=== PATIENT | male | born 1975 | race Caucasian/White ===

== ENCOUNTER 2020-12-11 08:01 | Emergency (ER) | payer MEDICAID ==
[~2020-12-11] VITALS: Ht 180.3 cm; Wt 115.0 kg
[2020-12-11 08:41] LABS: BASOPHILS % (AUTO) 0.2 % (0-1); EOSINOPHILS # (AUTO) 2.4 X10'3 (0-0.9); EOSINOPHILS % (AUTO) 14.9 % (0-6); HEMATOCRIT 45.4 % (42.0-52.0); HEMOGLOBIN 15.2 g/dl (14.0-17.9); LYMPHOCYTES # (AUTO) 1.7 X10'3 (1.1-4.8); MEAN CORPUSCULAR HEMOGLOBIN 31.4 PG (27.0-31.0); MEAN CORPUSCULAR HGB CONC 33.5 g/dL (33.0-36.5); MEAN CORPUSCULAR VOLUME 93.9 FL (78-98); MONOCYTES # (AUTO) 1.3 X10'3 (0-0.9); NEUTROPHILS # (AUTO) 10.4 X10'3 (1.8-7.7); NEUTROPHILS % (AUTO) 65.9 % (42-75); PLATELET COUNT 554 X10'3 (140-440); RED BLOOD COUNT 4.83 X10'6 (4.70-6.10); RED CELL DISTRIBUTION WIDTH 13.8 % (11.5-14.5); WHITE BLOOD COUNT 15.8 X10'3 (4.5-11.0)
[2020-12-11 08:58] LABS: ALANINE AMINOTRANSFERASE 53 U/L (12-78); ALBUMIN 2.6 G/DL (3.4-5.0); ALBUMIN/GLOBULIN RATIO 0.5 (1.1-1.5); ALKALINE PHOSPHATASE 59 IU/L (46-116); ANION GAP 10 (8-16); ASPARTATE AMINO TRANSFERASE 26 U/L (10-37); BILIRUBIN,TOTAL 0.3 MG/DL (0.1-1.0); BLOOD UREA NITROGEN 10 MG/DL (7-18); BUN/CREATININE RATIO 9.8 (5.4-32.0); CALCIUM 8.7 MG/DL (8.5-10.1); CHLORIDE 103 MMOL/L (99-107); CREATININE 1.02 MG/DL (0.60-1.10); GLUCOSE 123 MG/DL (70-104); POTASSIUM 3.8 MMOL/L (3.5-5.1); SODIUM 139 MMOL/L (135-145); TOTAL PROTEIN 7.5 G/DL (6.4-8.2); eGFR 80 ML/MIN
[2020-12-11 09:09] VITALS: BP 119/75
--- NOTE | 2020-12-11 10:37 | NUR ---
pt came back to room got d/c paper signed .Discussed the d/c instruction with the pt ,instructed to return to er for any worsening symp .ptvitals stable . hr 85 spo2 97%on ra bp 119/75 r 16
== END 2020-12-11 10:29 | disposition home or self-care (01) ==
LOC: ER 08:02
DX: R07.89 Other chest pain (principal); F20.9 Schizophrenia, unspecified; F32.9 Major depressive disorder, single episode, unspecified
CPT/HCPCS: 36415; 71045; 80053; 83880; 84484; 85025; 93005; 99285

== ENCOUNTER 2023-01-07 14:54 | Inpatient (IN) | payer MEDICAID ==
[~2023-01-07] VITALS: Ht 181.6 cm; Wt 130.0 kg
[2023-01-07 15:50] LABS: BASOPHILS # (AUTO) 0.1 X10'3 (0-0.2); BASOPHILS % (AUTO) 0.4 % (0-1); HEMOGLOBIN 15.6 g/dl (14.0-17.9); MEAN PLATELET VOLUME 9.7 FL (7.4-10.4); WHITE BLOOD COUNT 13.3 X10'3 (4.5-11.0)
[2023-01-07 15:51] LABS: EOSINOPHILS % (AUTO) 7.8 % (0-6); HEMATOCRIT 45.8 % (42.0-52.0); LYMPHOCYTES # (AUTO) 1.9 X10'3 (1.1-4.8); LYMPHOCYTES % (AUTO) 14.3 % (21-51); MEAN CORPUSCULAR HGB CONC 34.1 g/dL (33.0-36.5); MEAN CORPUSCULAR VOLUME 93.8 FL (78-98); MONOCYTES # (AUTO) 1.3 X10'3 (0-0.9); MONOCYTES % (AUTO) 9.5 % (2-12); PLATELET COUNT 368 X10'3 (140-440); RED BLOOD COUNT 4.88 X10'6 (4.70-6.10); RED CELL DISTRIBUTION WIDTH 13.1 % (11.5-14.5)
[2023-01-07 16:01] LABS: ALANINE AMINOTRANSFERASE 67 U/L (12-78); ALBUMIN 3.3 G/DL (3.4-5.0); ALBUMIN/GLOBULIN RATIO 0.7 (1.1-1.5); ALKALINE PHOSPHATASE 62 IU/L (46-116); ANION GAP 9 (8-16); ASPARTATE AMINO TRANSFERASE 34 U/L (10-37); BILIRUBIN,TOTAL 0.4 MG/DL (0.1-1.0); BLOOD UREA NITROGEN 8 MG/DL (7-18); BUN/CREATININE RATIO 7.5 (5.4-32.0); CHLORIDE 101 MMOL/L (99-107); CREATININE 1.06 MG/DL (0.60-1.10); GLUCOSE 141 MG/DL (70-104); SODIUM 137 MMOL/L (135-145); TOTAL CARBON DIOXIDE 27.3 MMOL/L (24-32); TOTAL PROTEIN 7.8 G/DL (6.4-8.2); eGFR 76 ML/MIN
[2023-01-07 16:12] LABS: LIPASE 8195 U/L (73-393)
[2023-01-07] MEDS ORDERED: normal saline 1000ml 1,000 ML IV ONE (16:50)
[2023-01-07 16:57] LABS: CLARITY,URINE SLIGHTLY CLOUDY (Clear); COLOR,URINE YELLOW (Yellow); GLUCOSE, URINE NEGATIVE (Neg); KETONES,URINE TRACE mg/dl (Neg); LEUKOCYTE ESTERASE ,URINE NEGATIVE (Neg); NITRITES, URINE NEGATIVE (Neg); OCCULT BLOOD,URINE TRACE-INTACT (Neg); PROTEIN,URINE NEGATIVE (Neg); UROBILINOGEN,URINE 0.2 E.U/dL (0.2-1.0)
[2023-01-07] MEDS ORDERED: iohexol 300mg/ml 100ml inj. ONE (16:58)
[2023-01-07 17:01] LABS: UA COLLECTION TYPE URINAL
[2023-01-07 17:03] LABS: MUCUS STRANDS MODERATE /LPF (Neg); SQUAMOUS EPITHELIAL CELL,UR FEW /LPF (FEW)
[2023-01-07 17:04] LABS: BACTERIA,URINE FEW /HPF (Neg); RBC,URINE 0-2 /HPF (0-2); WBC,URINE 0-4 /HPF (0-4)
[2023-01-07] MEDS ORDERED: acetaminophen 325mg tablet PO ONE (19:05)
[2023-01-07] MEDS ORDERED: magnesium 4gm in 100ml NS 100 ML IV PRN (19:35)
[2023-01-07] MEDS ORDERED: potassium Cl 20 mEq SR tablet PO PRN ×2 (19:35)
[2023-01-07] MEDS ORDERED: acetaminophen 325mg tablet PO PRN (19:35)
[2023-01-07] MEDS ORDERED: magnesium 2GM in 50ml NS 50 ML IV PRN (19:35)
[2023-01-07] MEDS ORDERED: magnesium Cl slow-release 64mg tablet PO PRN ×2 (19:35)
[2023-01-07] MEDS ORDERED: potassium Cl 40MEQ/1/2NS 520ml 520 ML IV PRN (19:35)
[2023-01-07 19:54] LABS: MAGNESIUM 2.1 MG/DL (1.5-2.4)
[2023-01-07] MEDS: K and/or MAG REPLACEMENT MC SCH (20:00)
[2023-01-07] MEDS: normal saline 1000ml 1,000 ML IV SCH (20:18)
--- NOTE | 2023-01-08 00:13 | NUR ---
Patient in room ED 11. I have received report from ROSALINO Hernandez in ED and had the opportunity to ask questions and assume patient care. Addendum: 01/08/23 at 0013 by Jasmyn Bucio RN Amended: Links added.
[2023-01-08 01:01] VITALS: BP 134/79
[2023-01-08] MEDS: ondansetron/PF 4mg/2ml inj IV PRN ×2 (01:06→08:08)
[2023-01-08] MEDS: morphine 2 MG/ML inj. syringe IV PRN ×5 (01:06→23:50)
[2023-01-08 06:00] VITALS: BP 102/65
--- NOTE | 2023-01-08 06:29 | NUR ---
Problems reprioritized. Patient report given, questions answered & plan of care reviewed with ANDREW Zelaya. Addendum: 01/08/23 at 0630 by Jasmyn Bucio RN Amended: Links added.
--- NOTE | 2023-01-08 06:49 | NUR ---
Patient in room [facility]. I have received report from Jasmyn JERRY and had the opportunity to ask questions and assume patient care. Pt found right side lying, awake, denies pain, breathing even and unlabored on room air.
[2023-01-08 07:25] LABS: BASOPHILS # (AUTO) 0.1 X10'3 (0-0.2); BASOPHILS % (AUTO) 0.7 % (0-1); EOSINOPHILS % (AUTO) 8.7 % (0-6); HEMATOCRIT 42.7 % (42.0-52.0); HEMOGLOBIN 14.4 g/dl (14.0-17.9); LYMPHOCYTES # (AUTO) 1.7 X10'3 (1.1-4.8); LYMPHOCYTES % (AUTO) 14.6 % (21-51); MEAN CORPUSCULAR HEMOGLOBIN 31.5 PG (27.0-31.0); MEAN CORPUSCULAR HGB CONC 33.7 g/dL (33.0-36.5); MEAN CORPUSCULAR VOLUME 93.7 FL (78-98); MEAN PLATELET VOLUME 9.9 FL (7.4-10.4); MONOCYTES # (AUTO) 1.3 X10'3 (0-0.9); MONOCYTES % (AUTO) 10.8 % (2-12); NEUTROPHILS # (AUTO) 7.8 X10'3 (1.8-7.7); NEUTROPHILS % (AUTO) 65.2 % (42-75); PLATELET COUNT 330 X10'3 (140-440); RED BLOOD COUNT 4.56 X10'6 (4.70-6.10)
[2023-01-08] MEDS: normal saline 1000ml 1,000 ML IV SCH (07:35)
[2023-01-08 07:47] LABS: ALBUMIN 2.7 G/DL (3.4-5.0); ANION GAP 6 (8-16); BLOOD UREA NITROGEN 8 MG/DL (7-18); BUN/CREATININE RATIO 8.3 (5.4-32.0); CALCIUM 8.6 MG/DL (8.5-10.1); CHLORIDE 106 MMOL/L (99-107); CREATININE 0.96 MG/DL (0.60-1.10); GLUCOSE 101 MG/DL (70-104); MAGNESIUM 1.9 MG/DL (1.5-2.4); POTASSIUM 4.2 MMOL/L (3.5-5.1); SODIUM 139 MMOL/L (135-145); TOTAL CARBON DIOXIDE 26.6 MMOL/L (24-32); eGFR 85 ML/MIN
[2023-01-08] MEDS: K and/or MAG REPLACEMENT MC SCH ×2 (08:00→20:00)
[2023-01-08 08:28] LABS: LIPASE 5627 U/L (73-393)
[2023-01-08 10:00] VITALS: BP 124/82
[2023-01-08] MEDS ORDERED: DIVA500T9 PO (10:15)
[2023-01-08] MEDS ORDERED: ESCI5TAB17 PO (10:15)
[2023-01-08] MEDS ORDERED: BENZ2TAB7 PO (10:15)
[2023-01-08] MEDS ORDERED: ATOR20TA66 PO (10:15)
[2023-01-08] MEDS ORDERED: [UNRECOGNIZED DRUG - CODE] PO (10:15)
[2023-01-08] MEDS ORDERED: PALI234D IM (10:15)
[2023-01-08] MEDS ORDERED: CLOZ25TA12 PO (10:15)
[2023-01-08] MEDS ORDERED: TRAZ150T78 PO (10:15)
[2023-01-08] MEDS ORDERED: LUMA42CA PO (10:15)
[2023-01-08] MEDS ORDERED: ESCI-8 PO (10:15)
--- NOTE | 2023-01-08 11:53 | NUR ---
Student documentation: I have reviewed and agree with all interventions, assessments performed and documented by Sandra Student nurse. Addendum: 01/08/23 at 1211 by Garcia Kaminski LVN Correction: Yoli Strong nurse
--- NOTE | 2023-01-08 11:53 | NUR ---
Student Medication Administration: For this medication-pass time frame, all medication were reviewed, dispensed, administered and documented per hospital policy by Sandra Student nurse. Addendum: 01/08/23 at 1211 by Garcia Kaminski LVN Correction: Yoli Strong nurse
--- NOTE | 2023-01-08 11:58 | NUR ---
Paged. Message: Surg [facility]. Med Rec complete. Can you please review at your earliest convenience. Anastasiia Kaminski LVN Custom Responses: Transaction number: [id number]
--- NOTE | 2023-01-08 12:02 | NUR ---
RT Paged. Surgical [facility]. Pt uses a CPAP at night. Can you follow up with patient? Anastasiia Kaminski LVN
[2023-01-08 13:11] LABS: HEMOGLOBIN A1C 5.8 % (4.5-6.2)
[2023-01-08 13:21] LABS: CHOL/HDL RATIO 4.3 (0.00-4.99); CHOLESTEROL 139 MG/DL (0-200); ETHANOL < 0.010 GM/DL (0.0-0.010); HDL CHOLESTEROL 32 MG/DL (35-60); LDL CHOLESTEROL 79 MG/DL (50-100); TRIGLYCERIDES 129 MG/DL (20-135)
[2023-01-08] MEDS ORDERED: IBUP-1985 PO (13:23)
[2023-01-08] MEDS: dextrose 5%-normal saline 1,000 ML IV SCH ×2 (14:01→23:42)
--- NOTE | 2023-01-08 14:29 | NUR ---
Malnutrition consult: Pt reports 2-13 lb wt loss with decreased appetite per malnutrition risk screen with RN. Pt seen at bedside, denies any wt loss and reports gradual wt gain which is consistent with documented scaled wt h/o 115 kg 2/4 and current scaled wt 130 kg. Pt states he believes wt gain is r/t medications. Pt currently NPO though endorses feeling hungry and reports eating well IMAGING SCHEDULER. No visible fat or muscle wasting appreciated and no documented significant decrease in muscle strength or edema. Pt currently lacks a minimum of two criteria for malnutrition. Noted pt admit for acute pancreatitis. Pt provided with written and verbal pancreatitis nutrition therapy education. Pt denies questions at this time. RD contact information provided and pt encouraged to reach out if needed. Pt denies food allergies or difficulty chewing/swallowing. Per EMR pt with diarrhea x 6 days IMAGING SCHEDULER, pt states BM solid once admitted. Will continue to follow. Addendum: 01/08/23 at [address] Amended: Links added.
[2023-01-08] MEDS ORDERED: clonazePAM 0.5mg tablet PO PRN (15:10)
[2023-01-08] MEDS ORDERED: SINCALIDE IV ONE (15:10)
[2023-01-08] MEDS ORDERED: NORMAL SALINE IV ONE (15:10)
--- NOTE | 2023-01-08 17:12 | NUR ---
FUNCTIONAL TESTER TYPEWRITERS documentation: I have reviewed and agree with all interventions, assessments performed and documented by NORBERTO Crow.
[2023-01-08 17:24] LABS: URINE AMPHETAMINE SCREEN NEGATIVE (Neg); URINE BARBITUATE SCREEN NEGATIVE (Neg); URINE BENZODIAZEPINES SCREEN NEGATIVE (Neg); URINE CANNABINOID SCREEN NEGATIVE (Neg); URINE COCAINE SCREEN NEGATIVE (Neg); URINE METHADONE SCREEN NEGATIVE (Neg); URINE OPIATE SCREEN POSITIVE (Neg); URINE PHENCYCLIDINE SCREEN NEGATIVE (Neg)
[2023-01-08 18:00] VITALS: BP 120/81
--- NOTE | 2023-01-08 18:36 | NUR ---
Problems reprioritized. Patient report given, questions answered & plan of care reviewed with Lisseth JERRY.
[2023-01-08] MEDS: divalproex sodium 500mg tablet.DR PO SCH (20:31)
[2023-01-08] MEDS: atorvastatin 20mg tablet PO SCH (20:32)
[2023-01-08] MEDS: benztropine 1mg tablet PO SCH (20:33)
[2023-01-08] MEDS: traZODone 150mg tablet PO SCH (20:35)
[2023-01-08] MEDS: CAPLYTA 42 MG PO SCH (20:35)
[2023-01-08] MEDS: clozapine 25mg tablet PO SCH (20:44)
[2023-01-08] MEDS ORDERED: HYDROmorphone 1 mg/ml syringe IV ONE (21:10)
[2023-01-08 22:00] VITALS: BP 113/75
[2023-01-09] MEDS: ondansetron/PF 4mg/2ml inj IV PRN (01:28)
[2023-01-09] MEDS: piperacillin/tazo 3.375gm/50ml 50 ML IV SCH ×4 (01:29→21:47)
[2023-01-09 05:00] VITALS: BP 129/78
[2023-01-09] MEDS: dextrose 5%-normal saline 1,000 ML IV SCH ×3 (05:41→14:21)
--- NOTE | 2023-01-09 06:30 | NUR ---
Patient in room [facility]. I have received report from ROSALINO Montanez and had the opportunity to ask questions and assume patient care.
[2023-01-09 07:08] LABS: BASOPHILS % (AUTO) 0.3 % (0-1); EOSINOPHILS # (AUTO) 0.4 X10'3 (0-0.9); EOSINOPHILS % (AUTO) 2.3 % (0-6); HEMATOCRIT 40.5 % (42.0-52.0); HEMOGLOBIN 13.6 g/dl (14.0-17.9); LYMPHOCYTES # (AUTO) 1.4 X10'3 (1.1-4.8); LYMPHOCYTES % (AUTO) 8.6 % (21-51); MEAN CORPUSCULAR HEMOGLOBIN 31.4 PG (27.0-31.0); MEAN CORPUSCULAR HGB CONC 33.6 g/dL (33.0-36.5); MEAN CORPUSCULAR VOLUME 93.5 FL (78-98); MEAN PLATELET VOLUME 9.4 FL (7.4-10.4); MONOCYTES # (AUTO) 1.3 X10'3 (0-0.9); MONOCYTES % (AUTO) 8.2 % (2-12); NEUTROPHILS # (AUTO) 12.8 X10'3 (1.8-7.7); NEUTROPHILS % (AUTO) 80.6 % (42-75); PLATELET COUNT 364 X10'3 (140-440); RED BLOOD COUNT 4.33 X10'6 (4.70-6.10); RED CELL DISTRIBUTION WIDTH 12.8 % (11.5-14.5); WHITE BLOOD COUNT 15.8 X10'3 (4.5-11.0)
[2023-01-09 07:17] LABS: ALBUMIN 2.9 G/DL (3.4-5.0); ANION GAP 6 (8-16); BLOOD UREA NITROGEN 7 MG/DL (7-18); BUN/CREATININE RATIO 5.6 (5.4-32.0); CALCIUM 8.5 MG/DL (8.5-10.1); CHLORIDE 105 MMOL/L (99-107); CREATININE 1.24 MG/DL (0.60-1.10); GLUCOSE 130 MG/DL (70-104); SODIUM 138 MMOL/L (135-145); TOTAL CARBON DIOXIDE 26.6 MMOL/L (24-32); eGFR 63 ML/MIN
[2023-01-09 07:22] LABS: LIPASE 1511 U/L (73-393)
[2023-01-09] MEDS: benztropine 1mg tablet PO SCH ×2 (07:27→20:26)
[2023-01-09] MEDS: ESCITALOPRAM OXALATE 5 MG TABLET PO SCH (07:27)
[2023-01-09] MEDS: K and/or MAG REPLACEMENT MC SCH ×2 (07:28→20:00)
[2023-01-09] MEDS ORDERED: ESCITALOPRAM OXALATE 5 MG TABLET PO SCH (08:00)
[2023-01-09] MEDS ORDERED: NORMAL SALINE IV ONE (09:50)
[2023-01-09] MEDS ORDERED: SINCALIDE IV ONE (09:50)
[2023-01-09] MEDS: morphine 2 MG/ML inj. syringe IV PRN (11:15)
[2023-01-09] MEDS: pantoprazole 40mg Tablet.DR PO SCH (14:47)
[2023-01-09] MEDS: HYDROcodone/acetaminophen 5mg/325mg tablet PO PRN (17:27)
--- NOTE | 2023-01-09 17:57 | NUR ---
I have reviewed and agree with all interventions, assessments performed and documented by ANDREW AMBROCIO.
[2023-01-09 18:00] VITALS: BP 119/70
--- NOTE | 2023-01-09 18:31 | NUR ---
Problems reprioritized. Patient report given, questions answered & plan of care reviewed with ROSALINO Perez.
[2023-01-09 20:25] VITALS: BP 107/63
[2023-01-09] MEDS: clozapine 25mg tablet PO SCH (20:26)
[2023-01-09] MEDS: divalproex sodium 500mg tablet.DR PO SCH (20:26)
[2023-01-09] MEDS: heparin, porcine 5000 units/ml vial SQ SCH (20:26)
[2023-01-09] MEDS: traZODone 150mg tablet PO SCH (20:27)
[2023-01-09] MEDS: CAPLYTA 42 MG PO SCH (20:27)
[2023-01-09] MEDS: atorvastatin 20mg tablet PO SCH (20:27)
--- NOTE | 2023-01-09 21:30 | NUR ---
PT REFUSING TO WEAR CPAP TONIGHT. SAID IT WASN'T "FITTING RIGHT" IT WAS "TOO TIGHT". I ADJUSTED IT BUT PATIENT STILL REFUSED. I ASKED IF HE WANTED ME TO CALL R/T AND SEE IF THEY COULD GET A BETTER FIT HE SAID NO.
[2023-01-09 22:00] VITALS: BP 124/78
[2023-01-10] MEDS: dextrose 5%-normal saline 1,000 ML IV SCH ×4 (00:20→20:07)
[2023-01-10] MEDS: HYDROcodone/acetaminophen 5mg/325mg tablet PO PRN ×2 (01:16→18:31)
[2023-01-10 05:00] VITALS: BP 117/64
[2023-01-10] MEDS: piperacillin/tazo 3.375gm/50ml 50 ML IV SCH ×3 (05:44→22:41)
--- NOTE | 2023-01-10 06:12 | NUR ---
Problems reprioritized. Patient report given, questions answered & plan of care reviewed with ROSALINO AMBROCIO AND ROSALINO ANN.
--- NOTE | 2023-01-10 06:30 | NUR ---
Patient in room [facility]. I have received report from ROSALINO Perez and had the opportunity to ask questions and assume patient care.
[2023-01-10 07:01] LABS: BASOPHILS % (AUTO) 0.3 % (0-1); EOSINOPHILS # (AUTO) 1.1 X10'3 (0-0.9); HEMATOCRIT 40.3 % (42.0-52.0); HEMOGLOBIN 13.2 g/dl (14.0-17.9); LYMPHOCYTES # (AUTO) 1.9 X10'3 (1.1-4.8); LYMPHOCYTES % (AUTO) 14.3 % (21-51); MEAN CORPUSCULAR HEMOGLOBIN 30.9 PG (27.0-31.0); MEAN CORPUSCULAR HGB CONC 32.8 g/dL (33.0-36.5); MEAN CORPUSCULAR VOLUME 94.2 FL (78-98); MEAN PLATELET VOLUME 9.3 FL (7.4-10.4); MONOCYTES # (AUTO) 1.4 X10'3 (0-0.9); MONOCYTES % (AUTO) 10.1 % (2-12); NEUTROPHILS # (AUTO) 9.1 X10'3 (1.8-7.7); NEUTROPHILS % (AUTO) 67.3 % (42-75); PLATELET COUNT 400 X10'3 (140-440); RED BLOOD COUNT 4.28 X10'6 (4.70-6.10); RED CELL DISTRIBUTION WIDTH 12.7 % (11.5-14.5); WHITE BLOOD COUNT 13.5 X10'3 (4.5-11.0)
[2023-01-10 07:18] LABS: ALANINE AMINOTRANSFERASE 41 U/L (12-78); ALBUMIN 2.5 G/DL (3.4-5.0); ALBUMIN/GLOBULIN RATIO 0.6 (1.1-1.5); ALKALINE PHOSPHATASE 48 IU/L (46-116); ANION GAP 6 (8-16); ASPARTATE AMINO TRANSFERASE 28 U/L (10-37); BILIRUBIN,TOTAL 0.6 MG/DL (0.1-1.0); BLOOD UREA NITROGEN 5 MG/DL (7-18); BUN/CREATININE RATIO 4.4 (5.4-32.0); CALCIUM 8.5 MG/DL (8.5-10.1); CHLORIDE 108 MMOL/L (99-107); CREATININE 1.13 MG/DL (0.60-1.10); GLUCOSE 126 MG/DL (70-104); LIPASE 1457 U/L (73-393); MAGNESIUM 1.9 MG/DL (1.5-2.4); POTASSIUM 3.7 MMOL/L (3.5-5.1); SODIUM 142 MMOL/L (135-145); TOTAL CARBON DIOXIDE 27.8 MMOL/L (24-32); TOTAL PROTEIN 6.5 G/DL (6.4-8.2); eGFR 70 ML/MIN
[2023-01-10] MEDS: K and/or MAG REPLACEMENT MC SCH ×2 (07:33→20:00)
[2023-01-10] MEDS: benztropine 1mg tablet PO SCH ×2 (07:41→20:06)
[2023-01-10] MEDS: pantoprazole 40mg Tablet.DR PO SCH (07:41)
[2023-01-10] MEDS: heparin, porcine 5000 units/ml vial SQ SCH ×2 (07:42→20:06)
[2023-01-10] MEDS: ESCITALOPRAM OXALATE 5 MG TABLET PO SCH (07:44)
[2023-01-10 10:00] VITALS: BP 116/68
--- NOTE | 2023-01-10 11:01 | NUR ---
I have reviewed and agree with all interventions, assessments performed and documented by ANDREW AMBROCIO.
[2023-01-10 18:00] VITALS: BP 103/64
--- NOTE | 2023-01-10 18:19 | NUR ---
Problems reprioritized. Patient report given, questions answered & plan of care reviewed with ROSALINO Perez.
[2023-01-10] MEDS: CAPLYTA 42 MG PO SCH (20:06)
[2023-01-10] MEDS: atorvastatin 20mg tablet PO SCH (20:07)
[2023-01-10] MEDS: divalproex sodium 500mg tablet.DR PO SCH (20:07)
[2023-01-10] MEDS: traZODone 150mg tablet PO SCH (20:07)
[2023-01-10] MEDS: clozapine 25mg tablet PO SCH (20:07)
[2023-01-10 20:20] VITALS: BP 115/58
[2023-01-10 22:00] VITALS: BP 111/69
[2023-01-11] MEDS: dextrose 5%-normal saline 1,000 ML IV SCH ×3 (04:31→21:53)
[2023-01-11] MEDS: piperacillin/tazo 3.375gm/50ml 50 ML IV SCH ×3 (05:38→22:20)
[2023-01-11 06:00] VITALS: BP 134/78
--- NOTE | 2023-01-11 06:03 | NUR ---
Problems reprioritized. Patient report given, questions answered & plan of care reviewed with ROSALINO ANN AND ROSALINO AMBROCIO.
[2023-01-11 06:05] LABS: BASOPHILS # (AUTO) 0.1 X10'3 (0-0.2); BASOPHILS % (AUTO) 0.5 % (0-1); EOSINOPHILS # (AUTO) 1.2 X10'3 (0-0.9); EOSINOPHILS % (AUTO) 7.3 % (0-6); HEMATOCRIT 38.9 % (42.0-52.0); HEMOGLOBIN 13.1 g/dl (14.0-17.9); LYMPHOCYTES # (AUTO) 1.5 X10'3 (1.1-4.8); LYMPHOCYTES % (AUTO) 9.4 % (21-51); MEAN CORPUSCULAR HEMOGLOBIN 31.5 PG (27.0-31.0); MEAN CORPUSCULAR HGB CONC 33.6 g/dL (33.0-36.5); MEAN CORPUSCULAR VOLUME 93.8 FL (78-98); MEAN PLATELET VOLUME 9.2 FL (7.4-10.4); MONOCYTES # (AUTO) 1.8 X10'3 (0-0.9); MONOCYTES % (AUTO) 11.7 % (2-12); NEUTROPHILS # (AUTO) 11.2 X10'3 (1.8-7.7); NEUTROPHILS % (AUTO) 71.1 % (42-75); PLATELET COUNT 389 X10'3 (140-440); RED BLOOD COUNT 4.15 X10'6 (4.70-6.10); WHITE BLOOD COUNT 15.8 X10'3 (4.5-11.0)
[2023-01-11 06:18] LABS: ALANINE AMINOTRANSFERASE 42 U/L (12-78); ALBUMIN 2.3 G/DL (3.4-5.0); ALBUMIN/GLOBULIN RATIO 0.6 (1.1-1.5); ALKALINE PHOSPHATASE 49 IU/L (46-116); ANION GAP 5 (8-16); ASPARTATE AMINO TRANSFERASE 34 U/L (10-37); BILIRUBIN,TOTAL 0.5 MG/DL (0.1-1.0); BLOOD UREA NITROGEN 6 MG/DL (7-18); BUN/CREATININE RATIO 5.3 (5.4-32.0); CALCIUM 8.4 MG/DL (8.5-10.1); CHLORIDE 108 MMOL/L (99-107); CREATININE 1.14 MG/DL (0.60-1.10); GLUCOSE 131 MG/DL (70-104); MAGNESIUM 1.9 MG/DL (1.5-2.4); POTASSIUM 3.5 MMOL/L (3.5-5.1); SODIUM 141 MMOL/L (135-145); TOTAL CARBON DIOXIDE 27.7 MMOL/L (24-32); TOTAL PROTEIN 6.3 G/DL (6.4-8.2); eGFR 69 ML/MIN
[2023-01-11 06:28] LABS: LIPASE 3135 U/L (73-393)
--- NOTE | 2023-01-11 06:30 | NUR ---
Patient in room [facility]. I have received report from ROSALINO Perez and had the opportunity to ask questions and assume patient care.
[2023-01-11] MEDS: pantoprazole 40mg Tablet.DR PO SCH (07:52)
[2023-01-11] MEDS: benztropine 1mg tablet PO SCH ×2 (07:52→22:19)
[2023-01-11] MEDS: ESCITALOPRAM OXALATE 5 MG TABLET PO SCH (07:53)
[2023-01-11] MEDS: heparin, porcine 5000 units/ml vial SQ SCH (07:53)
[2023-01-11] MEDS: K and/or MAG REPLACEMENT MC SCH ×2 (08:18→20:00)
[2023-01-11 11:00] VITALS: BP 107/61
--- NOTE | 2023-01-11 11:52 | NUR ---
Dr Brian called and stated he planning to perform a "Lap Lindy, Possible Open" in the am, and pt to be NPO after midnight tonight. [facility] ANDREW Das notified.
[2023-01-11] MEDS: HYDROcodone/acetaminophen 5mg/325mg tablet PO PRN (11:55)
--- NOTE | 2023-01-11 17:42 | NUR ---
I have reviewed and agree with all interventions, assessments performed and documented by ANDREW AMBROCIO.
[2023-01-11 18:00] VITALS: BP 144/94
--- NOTE | 2023-01-11 18:16 | NUR ---
Problems reprioritized. Patient report given, questions answered & plan of care reviewed with ROSALINO Perez.
[2023-01-11 22:00] VITALS: BP 127/77
[2023-01-11] MEDS: divalproex sodium 500mg tablet.DR PO SCH (22:18)
[2023-01-11] MEDS: CAPLYTA 42 MG PO SCH (22:19)
[2023-01-11] MEDS: clozapine 25mg tablet PO SCH (22:19)
[2023-01-11] MEDS: atorvastatin 20mg tablet PO SCH (22:19)
[2023-01-11] MEDS: traZODone 150mg tablet PO SCH (22:19)
[2023-01-12] VITALS (14 sets, daily range): BP systolic 115–159; BP diastolic 64–92
[2023-01-12] MEDS: piperacillin/tazo 3.375gm/50ml 50 ML IV SCH ×3 (05:00→22:04)
[2023-01-12] MEDS: dextrose 5%-normal saline 1,000 ML IV SCH ×2 (05:00→22:03)
[2023-01-12 06:09] LABS: APTT 31 SECONDS (22-32); BASOPHILS # (AUTO) 0.1 X10'3 (0-0.2); BASOPHILS % (AUTO) 0.4 % (0-1); EOSINOPHILS # (AUTO) 1.3 X10'3 (0-0.9); EOSINOPHILS % (AUTO) 9.1 % (0-6); HEMATOCRIT 40.7 % (42.0-52.0); HEMOGLOBIN 13.8 g/dl (14.0-17.9); LYMPHOCYTES % (AUTO) 14.4 % (21-51); MEAN CORPUSCULAR HEMOGLOBIN 31.8 PG (27.0-31.0); MEAN CORPUSCULAR HGB CONC 33.9 g/dL (33.0-36.5); MEAN CORPUSCULAR VOLUME 93.8 FL (78-98); MEAN PLATELET VOLUME 9.2 FL (7.4-10.4); MONOCYTES # (AUTO) 1.6 X10'3 (0-0.9); MONOCYTES % (AUTO) 11.3 % (2-12); NEUTROPHILS # (AUTO) 9.1 X10'3 (1.8-7.7); NEUTROPHILS % (AUTO) 64.8 % (42-75); PLATELET COUNT 394 X10'3 (140-440); RED BLOOD COUNT 4.34 X10'6 (4.70-6.10); RED CELL DISTRIBUTION WIDTH 12.6 % (11.5-14.5)
[2023-01-12 06:27] LABS: ALANINE AMINOTRANSFERASE 54 U/L (12-78); ALBUMIN 2.3 G/DL (3.4-5.0); ALBUMIN/GLOBULIN RATIO 0.5 (1.1-1.5); ALKALINE PHOSPHATASE 52 IU/L (46-116); ANION GAP 12 (8-16); ASPARTATE AMINO TRANSFERASE 37 U/L (10-37); BILIRUBIN,TOTAL 0.5 MG/DL (0.1-1.0); BLOOD UREA NITROGEN 2 MG/DL (7-18); BUN/CREATININE RATIO 2.1 (5.4-32.0); CALCIUM 8.7 MG/DL (8.5-10.1); CHLORIDE 110 MMOL/L (99-107); CREATININE 0.94 MG/DL (0.60-1.10); GLUCOSE 120 MG/DL (70-104); POTASSIUM 3.6 MMOL/L (3.5-5.1); SODIUM 145 MMOL/L (135-145); TOTAL CARBON DIOXIDE 23.5 MMOL/L (24-32); TOTAL PROTEIN 6.6 G/DL (6.4-8.2); eGFR 87 ML/MIN
--- NOTE | 2023-01-12 06:31 | NUR ---
Problems reprioritized. Patient report given, questions answered & plan of care reviewed with ROSALINO JARAMILLO.
[2023-01-12 06:36] LABS: LIPASE 1942 U/L (73-393)
[2023-01-12] MEDS: benztropine 1mg tablet PO SCH ×2 (07:54→21:04)
[2023-01-12] MEDS: ESCITALOPRAM OXALATE 5 MG TABLET PO SCH (07:54)
[2023-01-12] MEDS: pantoprazole 40mg Tablet.DR PO SCH (07:54)
[2023-01-12] MEDS: K and/or MAG REPLACEMENT MC SCH ×2 (08:00→20:00)
[2023-01-12] MEDS ORDERED: morphine 4 MG/ML inj SYRINge IV PRN ×2 (09:25→14:25)
[2023-01-12] MEDS ORDERED: ringers solution, lacted 1,000 ML IV SCH ×2 (09:25→14:25)
[2023-01-12] MEDS ORDERED: morphine 2 MG/ML inj. syringe IV PRN ×2 (09:25→14:25)
[2023-01-12] MEDS ORDERED: fentaNYL/PF 50MCG/1 ML 2ML syringe IV PRN ×2 (09:25)
[2023-01-12] MEDS ORDERED: ondansetron/PF 4mg/2ml inj IV PRN ×2 (09:25→14:25)
[2023-01-12] MEDS ORDERED: hydrALAZINE 20mg/ml inj. IV PRN (09:25)
[2023-01-12] MEDS ORDERED: labetalol 20mg/4ml (5mg/ml) syringe IV PRN (09:25)
[2023-01-12] MEDS ORDERED: ringers solution, lacted 1,000 ML IV ONE (09:25)
--- NOTE | 2023-01-12 13:45 | NUR ---
Page sent to PICC RN: [facility] W: is any one available to do an us guided PIV? patient is going to OR. IV is bad. attempted already. thanks, jimmie :)
--- NOTE | 2023-01-12 14:10 | NUR ---
Initial: Pt admit for acute pancreatitis. Patient's diet advanced from NPO to full liquids to regular then back to NPO and now with an active clear liquid diet, though likely actually NPO as pt going to OR today for cholecystectomy per EMR. While receiving meal trays PO intake fluctuated with average 61% PO intake of meals. Recommend resuming regular diet as medically indicated post-op or low fat diet if pt with abdominal pain and/or diarrhea after meals. Noted pt receiving D5NS at 125 mL/hr providing 510 kcal/day. LBM 01/11. Will continue to follow closely. Recommendations: 1) Advance to regular diet as medically indicated; low fat diet if pt with abdominal pain and/or diarrhea after meals; lipid panel WNL except for slightly low HDL 2) Initiate nutrition support if unable to advance PO diet 3) Bowel care PRN 4) Weekly scaled weights Addendum: 01/12/23 at [address] Amended: Links added.
[2023-01-12] MEDS ORDERED: meperidine/PF 25mg/ml syringe IV PRN ×3 (14:25)
[2023-01-12] MEDS ORDERED: proCHLORperazine 10 MG/2 ml inj IV PRN (14:25)
--- NOTE | 2023-01-12 14:52 | NUR ---
Report called to ROSALINO Pollard.
[2023-01-12] MEDS ORDERED: glycopyrrolate 0.2mg/ml inj ONE (14:55)
[2023-01-12] MEDS ORDERED: sevoflurane 250ml liquid IH ONE (14:55)
[2023-01-12] MEDS ORDERED: neostigmine methylsulfate 1 MG/ML 10ml vial ONE (14:55)
[2023-01-12] MEDS ORDERED: LIDOcaine 2% (20mg/ml) 5ml vial ONE (14:55)
[2023-01-12] MEDS ORDERED: ondansetron/PF 4mg/2ml inj ONE (14:55)
[2023-01-12] MEDS ORDERED: midazolam 1 mg/ML 2ml injection ONE (15:03)
[2023-01-12] MEDS ORDERED: fentaNYL /PF 50mcg/ml 5ml ampule ONE (15:04)
[2023-01-12] MEDS ORDERED: propofol inj 20 ML IV ONE (15:05)
[2023-01-12] MEDS ORDERED: BUPIVAcaine 0.5% inj/PF 30 ML ONE (15:18)
[2023-01-12] MEDS ORDERED: dexamethasone sod phosphate 4mg/ml inj. ONE (16:10)
[2023-01-12] MEDS ORDERED: sugammadex 200mg/2ml injection IV ONE (16:10)
[2023-01-12] MEDS ORDERED: rocuronium 10mg/ml inj IV ONE (16:10)
[2023-01-12] MEDS ORDERED: acetaminophen 1,000mg/100ml IV 100 ML IV ONE (16:13)
--- NOTE | 2023-01-12 16:18 | NUR ---
Received from OR via BED , accompanied by Anesthesiologist KARLOS and report given by Anesthesiolgist.10L MASK ON WITH 98% SATURATIONS. 20G PIV IN RIGHT UE RUNNING LR AT 100. 4 DRESSINGS TO ABDOMEN THAT ARE CDI. MICHAEL PRESENT TO RIGHT ABDOMEN. BLOODY DRAINAGE PRESENT. SCDS DONNED. VSS. WILL ASSESS FOR PAIN AND MEDICATE NEEDED. Addendum: 01/12/23 at 1628 by Atul Mirza RN, RN Amended: Links added.
[2023-01-12] MEDS ORDERED: BUPIVAcaine 0.5% inj/PF 30 ml vial IJ ONE (16:23)
--- NOTE | 2023-01-12 17:28 | NUR ---
PRESENT AND 2 RAILS DOWN. RN AWARE THAT PATIENT HAS ARRIVED. ROSALINO SANTIAGO PRESENT TO ACCEPT CARE OF REPORT GIVEN AND ALL QUESTIONS ANSWERED. PATIENT TRANSFERRED TO SURG. BELONGINGS PRESENT IN ROOM(NOTHING BROUGHT TO RR) RN PRESENT ALL CRITERIA FOR TRANSFER BACK TO THE FLOOR HAS BEEN ACHIEVED. VSS. PAIN AT A TOLERABLE LEVEL. BED LOW, CALL LIGHT PATIENT. Addendum: 01/12/23 at 1741 by Atul Mirza RN, RN Amended: Links added.
--- NOTE | 2023-01-12 18:01 | NUR ---
received report from ROSALINO Pollard. Patient arrived to the floor. VSS. no complaints. Incisions CDI.
--- NOTE | 2023-01-12 18:06 | NUR ---
Problems reprioritized. Patient report given, questions answered & plan of care reviewed with ROSALINO Walker.
[2023-01-12] MEDS: traZODone 150mg tablet PO SCH (21:03)
[2023-01-12] MEDS: divalproex sodium 500mg tablet.DR PO SCH (21:03)
[2023-01-12] MEDS: atorvastatin 20mg tablet PO SCH (21:03)
[2023-01-12] MEDS: clozapine 25mg tablet PO SCH (21:03)
[2023-01-12] MEDS: CAPLYTA 42 MG PO SCH (21:04)
--- NOTE | 2023-01-12 23:00 | NUR ---
Student documentation: I have reviewed and agree with all interventions, assessments performed and documented by Margaret Meeks.
--- NOTE | 2023-01-12 23:29 | NUR ---
Student documentation: I have reviewed interventions, assessments performed and documented by Margaret WILLIAMSON [facility].
--- NOTE | 2023-01-12 23:30 | NUR ---
Student Medication Administration: For this medication-pass time frame, all medication were reviewed, dispensed, administered and documented per hospital policy by Margaret WILLIAMSON [facility].
[2023-01-13 04:00] VITALS: BP 146/84
[2023-01-13] MEDS: piperacillin/tazo 3.375gm/50ml 50 ML IV SCH ×3 (05:52→22:01)
[2023-01-13] MEDS: dextrose 5%-normal saline 1,000 ML IV SCH ×4 (05:53→22:01)
[2023-01-13 06:32] LABS: ALANINE AMINOTRANSFERASE 87 U/L (12-78); ALBUMIN 2.4 G/DL (3.4-5.0); ALBUMIN/GLOBULIN RATIO 0.5 (1.1-1.5); ALKALINE PHOSPHATASE 80 IU/L (46-116); ANION GAP 10 (8-16); ASPARTATE AMINO TRANSFERASE 58 U/L (10-37); BILIRUBIN,TOTAL 0.3 MG/DL (0.1-1.0); BLOOD UREA NITROGEN 5 MG/DL (7-18); BUN/CREATININE RATIO 4.9 (5.4-32.0); CALCIUM 8.9 MG/DL (8.5-10.1); CHLORIDE 110 MMOL/L (99-107); CREATININE 1.03 MG/DL (0.60-1.10); GLUCOSE 172 MG/DL (70-104); LIPASE 662 U/L (73-393); POTASSIUM 3.8 MMOL/L (3.5-5.1); SODIUM 143 MMOL/L (135-145); TOTAL PROTEIN 7.2 G/DL (6.4-8.2); eGFR 78 ML/MIN
--- NOTE | 2023-01-13 06:58 | NUR ---
Problems reprioritized. Patient report given, questions answered & plan of care reviewed with Jahaira JERRY.
[2023-01-13 07:10] VITALS: BP 119/69
[2023-01-13] MEDS: benztropine 1mg tablet PO SCH ×2 (07:38→20:26)
[2023-01-13] MEDS: ESCITALOPRAM OXALATE 5 MG TABLET PO SCH (07:38)
[2023-01-13] MEDS: pantoprazole 40mg Tablet.DR PO SCH (07:38)
[2023-01-13] MEDS: K and/or MAG REPLACEMENT MC SCH ×2 (08:00→19:25)
[2023-01-13 12:30] VITALS: BP 138/77
--- NOTE | 2023-01-13 13:30 | NUR ---
Message: [id number] [facility] W: Dr. mahan said patient is okay to dc from his standpoint. thanks, jimmie [id number] Transaction number: [id number]
--- NOTE | 2023-01-13 16:44 | NUR ---
Message: [address] Nem[facility] W: patients family is here. patient is wanting to discharge. Dr. mahan gave the okay earlier. thank you! jimmie [id number] Transaction number: [id number]
[2023-01-13 18:00] VITALS: BP 133/77
--- NOTE | 2023-01-13 18:13 | NUR ---
Problems reprioritized. Patient report given, questions answered & plan of care reviewed with ROSALINO Wong.
--- NOTE | 2023-01-13 18:51 | NUR ---
Patient in room [facility]. I have received report from ELLA JERRY and had the opportunity to ask questions and assume patient care.
[2023-01-13] MEDS: atorvastatin 20mg tablet PO SCH (20:26)
[2023-01-13] MEDS: traZODone 150mg tablet PO SCH (20:26)
[2023-01-13] MEDS: divalproex sodium 500mg tablet.DR PO SCH (20:26)
[2023-01-13] MEDS: CAPLYTA 42 MG PO SCH (20:27)
[2023-01-13 22:00] VITALS: BP 145/86
[2023-01-13] MEDS: clozapine 25mg tablet PO SCH (22:01)
[2023-01-13] MEDS: HYDROcodone/acetaminophen 5mg/325mg tablet PO PRN (22:09)
[2023-01-14] MEDS: piperacillin/tazo 3.375gm/50ml 50 ML IV SCH ×2 (05:41→14:00)
--- NOTE | 2023-01-14 06:20 | NUR ---
Problems reprioritized. Patient report given, questions answered & plan of care reviewed with ELLA JERRY.
[2023-01-14 07:10] VITALS: BP 134/81
[2023-01-14] MEDS: pantoprazole 40mg Tablet.DR PO SCH (07:43)
[2023-01-14] MEDS: ESCITALOPRAM OXALATE 5 MG TABLET PO SCH (07:44)
[2023-01-14] MEDS: benztropine 1mg tablet PO SCH (07:44)
[2023-01-14] MEDS: dextrose 5%-normal saline 1,000 ML IV SCH (07:45)
[2023-01-14] MEDS: HYDROcodone/acetaminophen 5mg/325mg tablet PO PRN (07:49)
[2023-01-14] MEDS: K and/or MAG REPLACEMENT MC SCH (08:00)
[2023-01-14 08:23] LABS: ALANINE AMINOTRANSFERASE 70 U/L (12-78); ALBUMIN 2.4 G/DL (3.4-5.0); ALBUMIN/GLOBULIN RATIO 0.6 (1.1-1.5); ALKALINE PHOSPHATASE 54 IU/L (46-116); ANION GAP 7 (8-16); ASPARTATE AMINO TRANSFERASE 45 U/L (10-37); BILIRUBIN,TOTAL 0.3 MG/DL (0.1-1.0); BLOOD UREA NITROGEN 4 MG/DL (7-18); BUN/CREATININE RATIO 3.9 (5.4-32.0); CALCIUM 8.6 MG/DL (8.5-10.1); CHLORIDE 111 MMOL/L (99-107); CREATININE 1.02 MG/DL (0.60-1.10); GLUCOSE 138 MG/DL (70-104); LIPASE 788 U/L (73-393); POTASSIUM 3.2 MMOL/L (3.5-5.1); SODIUM 145 MMOL/L (135-145); TOTAL CARBON DIOXIDE 26.7 MMOL/L (24-32); TOTAL PROTEIN 6.5 G/DL (6.4-8.2); eGFR 79 ML/MIN
[2023-01-14 12:00] VITALS: BP 145/86
[2023-01-14] MEDS ORDERED: potassium Cl 20 mEq SR tablet PO STA ×2 (12:02→15:34)
--- NOTE | 2023-01-14 15:18 | NUR ---
Message: 345B: [facility] W: Roc gave the okay to DC. drain is getting taken out. thanks, jimmie Transaction number: [id number]
--- NOTE | 2023-01-14 16:45 | NUR ---
Message: [phone] Laithf, W: Patient ready for discharge. at bedside waiting. jimmie [email or web address] Transaction number: [id number]
[2023-01-14] MEDS ORDERED: PANT40TA54 PO (17:15)
[2023-01-14] MEDS ORDERED: HYDR-3965 PO (17:15)
[2023-01-14] MEDS ORDERED: LACT1CAP26 PO (17:15)
[2023-01-14] MEDS ORDERED: AMOX-580 PO (17:15)
--- NOTE | 2023-01-14 18:06 | NUR ---
Patient stable and appropriate for discharge home. IV removed. All belongings gathered from room. New RX called in to [facility] on [address]. All discharge instructions and education given and reviewed with patient, all questions answered.
== END 2023-01-14 18:00 | disposition home or self-care (01) | DRG 263 ==
LOC: ER 14:55 → ED HOLD 19:40 → SUR 3N 01-08 00:20
PROVIDERS: ADMIT Internal Medicine; ATTEND Family Medicine
PROC: BW211ZZ Computerized Tomography (CT Scan) of Abdomen and Pelvis using Low Osmolar Contrast (ICD-10-PCS; 2023-01-07)
PROC: 0FT44ZZ Resection of Gallbladder, Percutaneous Endoscopic Approach (ICD-10-PCS; principal; 2023-01-12 14:55)
DX: K85.10 Biliary acute pancreatitis without necrosis or infection (principal); K81.9 Cholecystitis, unspecified; F20.9 Schizophrenia, unspecified; F17.210 Nicotine dependence, cigarettes, uncomplicated; F32.A Depression, unspecified; F41.9 Anxiety disorder, unspecified; Z79.899 Other long term (current) drug therapy
CPT/HCPCS: 36415; 74177; 76700; 78227; 80048; 80053; 80061; 80305; 80320; 81001; 82948; 83036; 83605; 83690; 83735; 84145; 84443; 85025; 85610; 85730; 87081; 93971; 94760; 96361; 99285; A4215; A4615; A4618; A6258; A6402; A6449; A7000; A9537; G0378; J0131; J1100; J1170; J1644; J2250; J2270; J2405; J2543; J2704; J2710; J3010; J3490; J7030; J7042; J7070; J7120; Q9967; S0020

== ENCOUNTER 2023-05-27 21:55 | Emergency (ER) | payer MEDICAID ==
[~2023-05-27] VITALS: Ht 180.3 cm; Wt 126.4 kg
[~2023-05-27 21:55] MED LIST: ATOR20TA66 PO; BENZ2TAB65 PO; CLOZ25TA12 PO; DIVA500T9 PO; ESCI-8 PO; ESCI5TAB17 PO; LACT1CAP26 PO; LUMA42CA PO; PALI234D IM; PANT40TA54 PO; TRAZ150T78 PO; [UNRECOGNIZED DRUG - CODE] PO
[2023-05-27 23:18] LABS: NEUTROPHILS # (AUTO) 11.1 X10'3 (1.8-7.7); NEUTROPHILS % (AUTO) 72.3 % (42-75)
[2023-05-27 23:20] LABS: BASOPHILS # (AUTO) 0.2 X10'3 (0-0.2); BASOPHILS % (AUTO) 1.2 % (0-1); BILIRUBIN,URINE NEGATIVE (Neg); CLARITY,URINE CLEAR (Clear); COLOR,URINE YELLOW (Yellow); EOSINOPHILS # (AUTO) 0.7 X10'3 (0-0.9); EOSINOPHILS % (AUTO) 4.7 % (0-6); GLUCOSE, URINE NEGATIVE (Neg); HEMATOCRIT 47.4 % (42.0-52.0); HEMOGLOBIN 16.1 g/dl (14.0-17.9); KETONES,URINE NEGATIVE (Neg); LEUKOCYTE ESTERASE ,URINE NEGATIVE (Neg); LYMPHOCYTES # (AUTO) 2.4 X10'3 (1.1-4.8); LYMPHOCYTES % (AUTO) 15.8 % (21-51); MEAN CORPUSCULAR HEMOGLOBIN 31.3 PG (27.0-31.0); MEAN CORPUSCULAR HGB CONC 33.9 g/dL (33.0-36.5); MEAN CORPUSCULAR VOLUME 92.4 FL (78-98); MEAN PLATELET VOLUME 9.2 FL (7.4-10.4); MONOCYTES # (AUTO) 0.9 X10'3 (0-0.9); NITRITES, URINE NEGATIVE (Neg); OCCULT BLOOD,URINE NEGATIVE (Neg); PLATELET COUNT 406 X10'3 (140-440); PROTEIN,URINE NEGATIVE (Neg); RED BLOOD COUNT 5.13 X10'6 (4.70-6.10); RED CELL DISTRIBUTION WIDTH 13.8 % (11.5-14.5); UROBILINOGEN,URINE 0.2 E.U/dL (0.2-1.0); WHITE BLOOD COUNT 15.4 X10'3 (4.5-11.0)
[2023-05-27 23:29] LABS: UA COLLECTION TYPE CLN CATCH MIDSTREAM
[2023-05-27 23:30] LABS: ALANINE AMINOTRANSFERASE 26 U/L (12-78); ALBUMIN 3.6 G/DL (3.4-5.0); ALBUMIN/GLOBULIN RATIO 0.8 (1.1-1.5); ALKALINE PHOSPHATASE 94 IU/L (46-116); ANION GAP 10 (8-16); ASPARTATE AMINO TRANSFERASE 20 U/L (10-37); BILIRUBIN,TOTAL 0.2 MG/DL (0.1-1.0); BLOOD UREA NITROGEN 7 MG/DL (7-18); BUN/CREATININE RATIO 5.4 (10.0-20.0); CALCIUM 9.3 MG/DL (8.5-10.1); CHLORIDE 102 MMOL/L (99-107); GLUCOSE 111 MG/DL (70-104); LIPASE 67 U/L (73-393); POTASSIUM 4.2 MMOL/L (3.5-5.1); SODIUM 140 MMOL/L (135-145); TOTAL PROTEIN 8.1 G/DL (6.4-8.2); eCRCL 76 ML/MIN; eGFR 59 ML/MIN
[2023-05-28] MEDS ORDERED: metoclopramide 10mg tablet PO ONE (00:05)
[2023-05-28] MEDS ORDERED: magnesium hydroxide 30ml (MOM) UD suspension PO ONE (00:05)
[2023-05-28] MEDS ORDERED: famotidine 20mg tablet PO ONE (00:05)
[2023-05-28] MEDS ORDERED: normal saline 1000ML IV soln IVB ONE (00:10)
[2023-05-28] MEDS ORDERED: FAMO40TA7 PO (00:40)
[2023-05-28] MEDS ORDERED: METO5TAB85 PO (00:40)
[2023-05-28 01:03] VITALS: BP 148/93; PULSE 81; RESP 16; TEMP 98.6; O2SAT 95
== END 2023-05-28 01:05 | disposition home or self-care (01) ==
LOC: ER 21:56
DX: K29.00 Acute gastritis without bleeding (principal); K21.9 Gastro-esophageal reflux disease without esophagitis; Z79.899 Other long term (current) drug therapy; Z90.49 Acquired absence of other specified parts of digestive tract
CPT/HCPCS: 80053; 81003; 83690; 85025; 93005; 99284; J7030; J7040

== ENCOUNTER 2023-11-13 00:10 | Emergency (ER) | payer MEDICAID ==
[~2023-11-13] VITALS: Ht 180.3 cm; Wt 127.0 kg
[~2023-11-13 00:10] MED LIST changes: +FAMO40TA7 PO; +METO5TAB85 PO
[2023-11-13] MEDS ORDERED: normal saline 1000ML IV soln IVB ONE ×2 (00:15→02:30)
[2023-11-13 00:28] LABS: BILIRUBIN,URINE NEGATIVE (Neg); CLARITY,URINE CLEAR (Clear); COLOR,URINE STRAW (Yellow); GLUCOSE, URINE >=1000 mg/dl (Neg); KETONES,URINE 40 mg/dl (Neg); LEUKOCYTE ESTERASE ,URINE NEGATIVE (Neg); NITRITES, URINE NEGATIVE (Neg); OCCULT BLOOD,URINE TRACE-INTACT (Neg); PROTEIN,URINE NEGATIVE (Neg); UROBILINOGEN,URINE 0.2 E.U/dL (0.2-1.0)
[2023-11-13 00:32] LABS: UA COLLECTION TYPE NON-SPECIFIED
[2023-11-13 00:33] LABS: BACTERIA,URINE NONE SEEN /HPF (Neg); MUCUS STRANDS FEW /LPF (Neg); WBC,URINE 0-4 /HPF (0-4)
[2023-11-13 00:34] LABS: SQUAMOUS EPITHELIAL CELL,UR FEW /LPF (FEW)
[2023-11-13 00:43] LABS: ABG BASE EXCESS -3.7 mmol/L (-2.0-2.0); ABG HCO3 20.3 mmol/L (22.0-26.0); ABG OXYGEN SATURATION 94.2 % (94-97); ABG PCO2 (T) 34.1 mmHg (35.0-48.0); ABG PH (T) 7.392 (7.340-7.440); ABG PO2 (T) 66.3 mmHg (75.0-100.0); ALLEN'S TEST Modified; FCOHb 6.4 % (0.0-3.9); FHHb 5.4 % (0.0-5.0); FMetHb 0.1 % (0.0-1.5); FO2Hb 88.1 % (94-97); MODE ROOM AIR; TOTAL HEMOGLOBIN 16.5 G/dl (14.0-17.9)
[2023-11-13 01:31] LABS: MEAN CORPUSCULAR HEMOGLOBIN 31.8 PG (27.0-31.0); RED CELL DISTRIBUTION WIDTH 13.4 % (11.5-14.5)
[2023-11-13 01:32] LABS: BASOPHILS # (AUTO) 0.1 X10'3 (0-0.2); EOSINOPHILS # (AUTO) 0.5 X10'3 (0-0.9); EOSINOPHILS % (AUTO) 3.6 % (0-6); HEMATOCRIT 44.2 % (42.0-52.0); HEMOGLOBIN 15.4 g/dl (14.0-17.9); LYMPHOCYTES # (AUTO) 2.7 X10'3 (1.1-4.8); MEAN CORPUSCULAR HGB CONC 34.9 g/dL (33.0-36.5); MEAN CORPUSCULAR VOLUME 91.3 FL (78-98); MEAN PLATELET VOLUME 10.7 FL (7.4-10.4); MONOCYTES # (AUTO) 1.4 X10'3 (0-0.9); MONOCYTES % (AUTO) 9.4 % (2-12); NEUTROPHILS # (AUTO) 10.1 X10'3 (1.8-7.7); PLATELET COUNT 304 X10'3 (140-440); RED BLOOD COUNT 4.84 X10'6 (4.70-6.10); WHITE BLOOD COUNT 14.8 X10'3 (4.5-11.0)
[2023-11-13 01:58] LABS: ALANINE AMINOTRANSFERASE 22 U/L (12-78); ALBUMIN/GLOBULIN RATIO 0.6 (1.1-1.5); ALKALINE PHOSPHATASE 99 IU/L (46-116); ANION GAP 12 (8-16); ASPARTATE AMINO TRANSFERASE 13 U/L (10-37); BILIRUBIN,TOTAL 0.4 MG/DL (0.1-1.0); BLOOD UREA NITROGEN 16 MG/DL (7-18); BUN/CREATININE RATIO 13.9 (10.0-20.0); CALCIUM 9.5 MG/DL (8.5-10.1); CHLORIDE 94 MMOL/L (99-107); CREATININE 1.15 MG/DL (0.60-1.10); POTASSIUM 3.9 MMOL/L (3.5-5.1); SODIUM 132 MMOL/L (135-145); TOTAL CARBON DIOXIDE 25.9 MMOL/L (24-32); TOTAL PROTEIN 7.7 G/DL (6.4-8.2); eCRCL 85 ML/MIN; eGFR 68 ML/MIN
[2023-11-13 02:04] LABS: GLUCOSE 505 MG/DL (70-104)
[2023-11-13] MEDS ORDERED: insulin regular, human 10 units/0.1 ml syringe IV ONE (02:20)
[2023-11-13] MEDS ORDERED: METF-900 PO (04:55)
[2023-11-13] MEDS ORDERED: metFORMIN 500mg tablet PO ONE (07:30)
[2023-11-13 07:40] VITALS: BP 123/86; PULSE 90; RESP 16; TEMP 97.1; O2SAT 96
== END 2023-11-13 07:42 | disposition home or self-care (01) ==
LOC: ER 00:11
DX: E11.65 Type 2 diabetes mellitus with hyperglycemia (principal); R53.1 Weakness; Z90.49 Acquired absence of other specified parts of digestive tract; Z79.899 Other long term (current) drug therapy
CPT/HCPCS: 36415; 36600; 80053; 81001; 82803; 82948; 83605; 84484; 85018; 85025; 93005; 96361; 96374; 99284; J1815; J7030

== ENCOUNTER 2024-05-07 12:56 | Emergency (ER) | payer MEDICAID ==
[~2024-05-07] VITALS: Ht 182.9 cm; Wt 85.0 kg
[2024-05-07] MEDS: normal saline 1000ml 1,000 ML IVB ONE (14:08)
[2024-05-07 14:10] LABS: BASOPHILS # (AUTO) 0.1 X10'3 (0-0.2); BASOPHILS % (AUTO) 0.8 % (0-1); EOSINOPHILS # (AUTO) 0.1 X10'3 (0-0.9); EOSINOPHILS % (AUTO) 0.7 % (0-6); HEMOGLOBIN 15.6 g/dl (14.0-17.9); LYMPHOCYTES # (AUTO) 3.1 X10'3 (1.1-4.8); MEAN CORPUSCULAR HEMOGLOBIN 29.7 PG (27.0-31.0); MEAN CORPUSCULAR HGB CONC 33.2 g/dL (33.0-36.5); MEAN CORPUSCULAR VOLUME 89.5 FL (78-98); MEAN PLATELET VOLUME 8.8 FL (7.4-10.4); MONOCYTES # (AUTO) 0.7 X10'3 (0-0.9); MONOCYTES % (AUTO) 5.5 % (2-12); PLATELET COUNT 391 X10'3 (140-440); RED BLOOD COUNT 5.26 X10'6 (4.70-6.10); RED CELL DISTRIBUTION WIDTH 15.3 % (11.5-14.5)
[2024-05-07 14:26] LABS: ALBUMIN 3.6 G/DL (3.4-5.0); ANION GAP 11 (8-16); BLOOD UREA NITROGEN 9 MG/DL (7-18); CHLORIDE 105 MMOL/L (99-107); GLUCOSE 100 MG/DL (70-104); POTASSIUM 3.3 MMOL/L (3.5-5.1); PRO BRAIN NATRIURETIC PEPTIDE 308 PG/ML (0-125); SODIUM 138 MMOL/L (135-145); TOTAL CARBON DIOXIDE 21.6 MMOL/L (24-32); eCRCL 100 ML/MIN; eGFR 80 ML/MIN
[2024-05-07] MEDS ORDERED: LORA-268 PO (18:12)
[2024-05-07 18:22] VITALS: BP 135/79; PULSE 56; RESP 16; TEMP 98.3; O2SAT 98
== END 2024-05-07 18:25 | disposition home or self-care (01) ==
LOC: ER 12:56
DX: F41.9 Anxiety disorder, unspecified (principal); E86.0 Dehydration; E11.9 Type 2 diabetes mellitus without complications; F32.A Depression, unspecified; F20.9 Schizophrenia, unspecified; Z90.49 Acquired absence of other specified parts of digestive tract; Z79.899 Other long term (current) drug therapy
CPT/HCPCS: 36415; 71045; 80048; 82948; 83880; 84484; 85025; 93005; 96360; 96361; 99285; J7030